=== PATIENT | female | born 1965 | race Two or more races ===

== ENCOUNTER 2019-11-27 06:29 | Emergency (ER) | payer OTHER, SELFPAY ==
[~2019-11-27] VITALS: Ht 165.1 cm; Wt 72.6 kg
[2019-11-27 06:40] VITALS: BP 162/96
--- NOTE | 2019-11-27 06:40 | NUR ---
ED Nurse Note: Pt walked into ED from home for c/o flu like symptoms onset 3 days ago. Pt reports body aches, cough, congestion. Pt is ambulatory with steady gait, no cardiac or respiratory distress noted.
[2019-11-27] MEDS ORDERED: TAMIFLU75 MG ORAL (06:48)
[2019-11-27] MEDS ORDERED: PROMETHAZINE-C118 M1 ORAL (06:48)
[2019-11-27] MEDS ORDERED: ZITHROMAX250 MG ORAL (06:48)
[2019-11-27] MEDS ORDERED: IBUPROFEN600 MG ORAL (06:48)
[2019-11-27 06:50] VITALS: BP 154/90
--- NOTE | 2019-11-27 06:50 | NUR ---
ER DISCHARGE NOTE: Patient is cleared to be discharged per ERMD, pt is aox4, on room air, with stable vital signs. pt was given dc and prescription instructions, pt was able to verbalize understanding, pt id band removed. pt is able to ambulate with steady gait. pt took all belongings.
--- NOTE | 2019-11-27 07:08 | Emergency Room Report ---
History of Present Illness General Chief Complaint: Flu Like Symptoms Source: Patient Present Illness HPI 54-year-old female presents ED for evaluation. Complaining of runny nose, cough , congestion. Symptoms started about 3 weeks ago but worsened the last few days. Notes body aches. Denies fever. Pain is dull, 7 out of 10, worse with coughing. Productive with yellowish phlegm. States she did receive a flu shot. No other aggravating relieving factors. Denies any other associated symptoms Allergies: Coded Allergies: No Known Allergies (Unverified , 11/27/19) Patient History Past Medical History: none Past Surgical History: none Pertinent Family History: none Social History: Denies: smoking, alcohol use, drug use Last Menstrual Period: 2008 Now: No : 3 Para: 3 Immunizations: UTD Reviewed Nursing Documentation: PMH: Agreed; PSxH: Agreed Nursing Documentation-PMH Hx Cardiac Problems: No Hx Hypertension: Yes Hx Pacemaker: No Hx Asthma: No Hx COPD: No Hx Gastrointestinal Problems: Yes Review of Systems All Other Systems: negative except mentioned in HPI Physical Exam Vital Signs Date Time Temp Pulse Resp B/P (MAP) Pulse Ox O2 Delivery O2 Flow Rate FiO2 11/27/19 06:34 98.8 107 16 162/96 (118) 91 Room Air Sp02 EP Interpretation: reviewed, normal General Appearance: no apparent distress, alert, GCS 15, non-toxic Head: normocephalic, atraumatic Eyes: bilateral eye normal inspection, bilateral eye PERRL ENT: hearing grossly normal, normal pharynx, no angioedema, normal voice Neck: full range of motion, supple/symm/no masses Respiratory: chest non-tender, lungs clear, normal breath sounds, speaking full sentences Cardiovascular #1: regular rate, rhythm, no edema Cardiovascular #2: 2+ carotid (R), 2+ carotid (L), 2+ radial (R), 2+ radial (L) , 2+ dorsalis pedis (R), 2+ dorsalis pedis (L) Gastrointestinal: normal bowel sounds, non tender, soft, non-distended, no guarding, no rebound Rectal: deferred Genitourinary: normal inspection, no CVA tenderness Musculoskeletal: back normal, normal range of motion, gait/station normal, non- tender Neurologic: alert, motor strength/tone normal, oriented x3, sensory intact, responsive, speech normal Psychiatric: judgement/insight normal, memory normal, mood/affect normal, no suicidal/homicidal ideation Reflexes: 3+ bicep (R), 3+ bicep (L), 3+ tricep (R), 3+ tricep (L), 3+ knee (R) , 3+ knee (L) Lymphatic: no adenopathy Medical Decision Making Diagnostic Impression: Primary Impression: Influenza-like symptoms ER Course Hospital Course 54-year-old F presents to ED complaining of bodyaches + cough Differential diagnoses include: URI, pharyngitis, otitis media, influenza Clinical course Patient placed on stretcher. After initial history physical exam reveals a young female in no acute distress. Bilateral TM unremarkable, no pharyngeal erythema. Lungs clear. No CVA tenderness. I discussed findings with patient. Concerning for influenza. We will discharge with Tamiflu and Z-Woody. Cough medication. Safe for discharge for close outpatient follow-up. Does not have a PMD. I will provide referrals Diagnosis - influenza-like symptoms Stable and discharged home with prescriptions for tamiflu, promethazine/codeine , zpack, motrin. drink plenty of fluids. Instructed to followup with PMD. Return to ED if symptoms recur or worsen Last Vital Signs Date Time Temp Pulse Resp B/P (MAP) Pulse Ox O2 Delivery O2 Flow Rate FiO2 11/27/19 06:50 98.8 102 16 154/90 91 Room Air Status: improved Disposition: HOME, SELF-CARE Condition: Stable Scripts Azithromycin* (ZITHROMAX*) 250 Mg Tablet 250 MG ORAL DAILY, #6 TAB 0 Refills Take two tables once daily for 1 day, then one tablet once daily for 4 days. Prov: Ceasar Guerrier MD 11/27/19 Oseltamivir Phosphate (Tamiflu) 75 Mg Capsule 75 MG ORAL TWICE A DAY for 5 Days, CAP Prov: Ceasar Guerrier MD 11/27/19 Codeine/Promethazine Hcl* (PROMETHAZINE-CODEINE SYRUP*) 118 Ml Syrup 5 ML ORAL Q6H PRN for For Cough, #118 ML 0 Refills Prov: Ceasar Guerrier MD 11/27/19 Ibuprofen* (MOTRIN*) 600 Mg Tablet 600 MG ORAL Q8H PRN for For Pain, #30 TAB 0 Refills Prov: Ceasar Guerrier MD 11/27/19 Referrals: [facility]ERR[facility] (PCP) [facility] Patient Instructions: Influenza, Adult, [id number] Ceasar Guerrier MD Nov 27, 2019 07:08
== END 2019-11-27 06:50 | disposition home or self-care (01) ==
LOC: EMR 06:45
DX: J11.1 Influenza due to unidentified influenza virus with other respiratory manifestations (principal); I10 Essential (primary) hypertension
CPT/HCPCS: 99282